=== PATIENT | male | born 1980 | race Caucasian/White ===

== ENCOUNTER → 2024-01-09 11:52 | Outpatient (REF) | payer BC, SELFPAY ==
[2024-01-09 12:42] LABS: Hematocrit 42.8 % (39.0-52.0); Hemoglobin 15.3 g/dL (13.0-18.0); Mean Corp Hgb Conc. 35.7 g/dL (33.0-37.0); Mean Corpuscular Hgb 32.8 pg (27.0-31.0); Mean Corpuscular Volume 91.8 fL (80.0-94.0); Platelet Count 286 10^3/uL (130-400); Red Blood Cell Count 4.66 10^6/uL (4.70-6.10); Red Cell Dist. Width 11.5 % (11.5-14.5); White Blood Cell Count 7.3 10^3/uL (4.8-10.8)
[2024-01-09 12:54] LABS: ALT (SGPT) 30 U/L (0-50); AST (SGOT) 28 U/L (17-59); Albumin 4.8 g/dl (3.5-5.0); Alkaline Phosphatase 81 U/L (38-126); Blood Urea Nitrogen 17 mg/dl (9-20); Calcium 10.1 mg/dl (8.4-10.2); Carbon Dioxide 31 mmol/L (22-30); Chloride 99 mmol/L (98-107); Glucose 90 mg/dl (70-99); HDL Cholesterol 42 mg/dl; LDL Cholesterol, Calculated 137 mg/dl; Potassium 4.5 mmol/L (3.5-5.1); Sodium 140 mmol/L (135-145); Total Bilirubin 0.9 mg/dl (0.2-1.3); Total Cholesterol 226 mg/dl (50-199); Total Protein 7.4 g/dl (6.3-8.2); Triglyceride 236 mg/dl (10-149); Very Low Density Lipoprotein 47 mg/dl (0-30); eGFR > 60.00
[2024-01-09 13:23] LABS: TSH Reflex To Free T4 2.62 uIU/ml (0.47-4.68)
== END ==
LOC: REG 11:52
PROVIDERS: ATTENDING PHYSICIAN Physician Assistant Medical
DX: Z13.220 Encounter for screening for lipoid disorders (principal); Z00.00 Encounter for general adult medical examination without abnormal findings
CPT/HCPCS: 36415; 80053; 80061; 84443; 85027

== ENCOUNTER 2024-07-28 06:13 | Day surgery (SDC) | payer BC, SELFPAY ==
[2024-07-28] VITALS (11 sets, daily range): BP systolic 100–120; BP diastolic 65–86; BMI 27.7
[2024-07-28] MEDS: NORMOSOL-R/PLASMALYTE-A 1000 IV (09:01)
== END 2024-07-28 13:23 | disposition home or self-care (01) ==
LOC: SDS 06:13
PROVIDERS: ATTENDING PHYSICIAN Otolaryngology
DX: J34.2 Deviated nasal septum (principal); J34.3 Hypertrophy of nasal turbinates; R06.83 Snoring
CPT/HCPCS: 30520; 30802

== ENCOUNTER → 2025-03-10 13:18 | Outpatient (REF) | payer BC, SELFPAY ==
[2025-03-10 14:23] LABS: Hematocrit 40.9 % (39.0-52.0); Hemoglobin 13.9 g/dL (13.0-18.0); Mean Corp Hgb Conc. 34.0 g/dL (33.0-37.0); Mean Corpuscular Volume 95.3 fL (80.0-94.0); Platelet Count 253 10^3/uL (130-400); Red Cell Dist. Width 11.6 % (11.5-14.5)
[2025-03-10 14:24] LABS: Absolute Neutrophils -Man Diff 2.0 10^3/uL (1.4-6.5); Normal RBC Morphology Yes; Platelets Checked Yes
[2025-03-10 14:26] LABS: Total Cells Counted 100
[2025-03-10 14:38] LABS: ALT (SGPT) 27 U/L (0-50); AST (SGOT) 25 U/L (17-59); Albumin 4.6 g/dl (3.5-5.0); Alkaline Phosphatase 69 U/L (38-126); Blood Urea Nitrogen 12 mg/dl (9-20); Calcium 9.2 mg/dl (8.4-10.2); Carbon Dioxide 31 mmol/L (22-30); Chloride 103 mmol/L (98-107); Glucose 85 mg/dl (70-99); HDL Cholesterol 36 mg/dl; LDL Cholesterol, Calculated 120 mg/dl; Potassium 4.2 mmol/L (3.5-5.1); Sodium 140 mmol/L (135-145); Total Protein 7.5 g/dl (6.3-8.2); Very Low Density Lipoprotein 20 mg/dl (0-30); eGFR > 60.00
== END ==
LOC: REG 13:18
PROVIDERS: ATTENDING PHYSICIAN Physician Assistant Medical
DX: G43.909 Migraine, unspecified, not intractable, without status migrainosus (principal); Z00.00 Encounter for general adult medical examination without abnormal findings; Z82.3 Family history of stroke; Z13.220 Encounter for screening for lipoid disorders
CPT/HCPCS: 36415; 80053; 80061; 84443; 85025